=== PATIENT | female | born 1985 | race Caucasian/White ===

== ENCOUNTER 2017-01-29 09:30 | Inpatient (IN) | payer BC, MEDICAID ==
[2017-01-31] MEDS ORDERED: Water For Irrigation,Sterile 1,000 ML Container IRR PRN (08:09)
[2017-01-31] MEDS ORDERED: Misoprostol 200 MCG Tab PO PRN (08:09)
[2017-01-31] MEDS ORDERED: Carboprost Tromethamine 250 MCG/1 ML Amp IM PRN (08:09)
[2017-01-31] MEDS ORDERED: Lidocaine 1% 50 ML MDV INJECT PRN (08:09)
[2017-01-31] MEDS ORDERED: Sodium Chloride 0.9% 2.5 ML Syringe FLUSH PRN (08:09)
[2017-01-31] MEDS ORDERED: Sodium Chloride 0.9% 10 ML Syringe FLUSH PRN (08:09)
[2017-01-31] MEDS ORDERED: Methylergonovine 0.2 MG/1 ML Amp IM PRN (08:09)
[2017-01-31] MEDS ORDERED: Terbutaline 1 MG/ML SDV SUBCUT PRN (08:13)
[2017-01-31] MEDS ORDERED: Oxytocin/Lactated Ringers 30 UNIT/500 ML BAG IV SCH ×2 (08:15)
[2017-01-31] MEDS ORDERED: Misoprostol 25 MCG (1/4 of 100 MCG) Tab VAG SCH (08:15)
[2017-01-31] MEDS: Lactated Ringers 1,000 ML IV SCH ×3 (08:24→12:54)
--- NOTE | 2017-01-31 10:07 | PCM.LDHP ---
L&D History of Present Illness - General Date of Service: 01/31/17 Admit Problem/Dx: Patient Status Order with Admit Dx/Problem 01/29/17 09:34 Patient Status [ADT] Routine Patient Status: Outpatient Admission Diagnosis/Problem: - planned Reason for Admit: decreased movement Nurse Unit Type: Labor and Delivery Admitting Physician: Rafael Vargas Attending Physician: Rafael Vargas 01/31/17 08:02 Patient Status [ADT] Routine Patient Status: Outpatient Admission Diagnosis/Problem: - planned Reason for Admit: ? [facility] Nurse Unit Type: Labor and Delivery Admitting Physician: Rafael Vargas Attending Physician: Rafael Vargas 01/31/17 08:09 Patient Status [ADT] Routine Patient Status: Refer to Observation Admission Diagnosis/Problem: - planned Reason for Admit: labor Nurse Unit Type: Labor and Delivery Admitting Physician: Rafael Vargas Attending Physician: Rafael Vargas Admission Diagnosis/Problem Admission Diagnosis/Problem - planned Source of Information: Patient History Limitations: Reports: No limitations - History of Present Illness Improves with: Reports: None Worsens with: Reports: None Associated Symptoms: Reports: N - Related Data Allergies/Adverse Reactions: Allergies Allergy/AdvReac Type Severity Reaction Status Date / Time Penicillins Allergy Hives Verified 10/02/16 20:47 Past Medical History - Past Health History Medical/Surgical History: Denies Medical/Surgical History Social & Family History - Family History Family Medical History: Noncontributory - Tobacco Use Smoking Status *Q: Never Smoker Second Hand Smoke Exposure: No - Caffeine Use Caffeine Use: Reports: None - Recreational Drug Use Recreational Drug Use: No H&P Review of Systems - Review of Systems: Review Of Systems: See Below General: Reports: no symptoms HEENT: Reports: no symptoms Pulmonary: Reports: no symptoms Cardiovascular: Reports: no symptoms Gastrointestinal: Reports: No symptoms Genitourinary: Reports: no symptoms Musculoskeletal: Reports: no symptoms Skin: Reports: no symptoms Psychiatric: Reports: no symptoms Neurological: Reports: no symptoms Hematologic/Lymphatic: Reports: no symptoms Immunologic: Reports: no symptoms L&D Exam - Exam Exam: See Below - Vital Signs Weight: 95.254 kg - OB Specific Fundal Height in cm: 40 Contraction Intensity: Mild to Moderate movement: active heart tones: present Presentation: Vertex - Patient Data Lab Results last 24 hrs: Laboratory Results - last 24 hr 01/31/17 01/31/17 01/31/17 Range/Units 07:55 08:29 08:29 WBC 13.66 H (4.0-11.0) K/uL RBC 4.77 (4.30-5.90) M/uL Hgb 12.7 (12.0-16.0) g/dL Hct 40.0 (36.0-46.0) % MCV 83.9 (80.0-98.0) fL MCH 26.6 L (27.0-32.0) pg MCHC 31.8 (31.0-37.0) g/dL RDW Std Deviation 43.4 (28.0-62.0) fl RDW Coeff of Sparkle 14 (11.0-15.0) % Plt Count 179 (150-400) K/uL MPV 11.50 (7.40-12.00) fL Nucleated RBC % 0.0 /100WBC Nucleated RBCs # 0 K/uL Membrane Rupture POSITIVE Blood Type A POSITIVE Antibody Screen NEGATIVE Result Diagrams: 01/31/17 08:29 Problem List Initiated/Reviewed/Updated: Yes Orders Last 24hrs: Active Orders 24 hr Category Date Time Status Patient Status [ADT] Routine ADT 01/31/17 08:02 Active Patient Status [ADT] Routine ADT 01/31/17 08:09 Active Communication Order [RC] ASDIRECTED Care 01/31/17 08:13 Active Heart Tones [RC] CONTINUOUS Care 01/31/17 08:09 Active Non Stress Test [RC] PER UNIT ROUTINE Care 01/31/17 08:02 Active Non Stress Test [RC] PER UNIT ROUTINE Care 01/31/17 08:09 Active May Shower [RC] ASDIRECTED Care 01/31/17 08:09 Active Notify Provider [RC] PRN Care 01/31/17 08:09 Active Notify Provider [RC] PRN Care 01/31/17 08:13 Active Notify Provider [RC] STAT Care 01/31/17 08:13 Active Oxygen Therapy [RC] ASDIRECTED Care 01/31/17 08:13 Active Up ad Marguerite [RC] ASDIRECTED Care 01/31/17 08:02 Active Up ad Marguerite [RC] ASDIRECTED Care 01/31/17 08:09 Active Vaginal Exam [RC] Click To Edit Care 01/31/17 08:02 Active Vaginal Exam [RC] PRN Care 01/31/17 08:09 Active Vaginal Exam [RC] PRN Care 01/31/17 08:13 Active Vital Signs [RC] PER UNIT ROUTINE Care 01/31/17 08:02 Active Vital Signs [RC] PER UNIT ROUTINE Care 01/31/17 08:09 Active Clear Liquid Diet [DIET] Diet 01/31/17 Lunch Active Carboprost Tromethamine [Hemabate DS] Med 01/31/17 08:09 Active 250 mcg IM ASDIRECTED PRN Lactated Ringers [Ringers, Lactated] 1,000 ml Med 01/31/17 08:15 Active IV ASDIRECTED Lidocaine 1% [Xylocaine 1%] Med 01/31/17 08:09 Active 50 ml INJECT .ONCE PRN Methylergonovine [Methergine] Med 01/31/17 08:09 Active 0.2 mg IM ASDIRECTED PRN Misoprostol [Cytotec] Med 01/31/17 08:09 Active 200 mcg PO .ONCE PRN Misoprostol [Cytotec] Med 01/31/17 08:15 Active 25 mcg VAG .ONCE Oxytocin/Lactated Ringers [Pitocin in LR 30 Units/500 Med 01/31/17 08:15 Active ML] 30 unit in 500 ml IV TITRATE Sodium Chloride 0.9% [Saline Flush] Med 01/31/17 08:09 Active 10 ml FLUSH ASDIRECTED PRN Sodium Chloride 0.9% [Saline Flush] Med 01/31/17 08:09 Active 2.5 ml FLUSH ASDIRECTED PRN Terbutaline [Brethine] Med 01/31/17 08:13 Active 0.25 mg SUBCUT ASDIRECTED PRN Vancomycin [Vancocin] 1 gm Med 01/31/17 08:15 Active Sodium Chloride 0.9% [Normal Saline] 250 ml IV Q12H Water For Irrigation,Sterile [Sterile Water for Med 01/31/17 08:09 Active Irrigation] 1,000 ml IRR ASDIRECTED PRN Scalp Electrode [WOMSER] Per Unit Routine Oth 01/31/17 08:09 Ordered Peripheral IV Insertion Adult [OM.PC] Routine Oth 01/31/17 08:09 Ordered Medication Orders Carboprost Tromethamine (Hemabate Ds) 250 mcg IM ASDIRECTED PRN PRN Reason: Post Hemorrhage Lactated Ringer's (Ringers, Lactated) 1,000 mls @ 150 mls/hr IV ASDIRECTED MARLON Last Admin: 01/31/17 08:24 Dose: 150 mls/hr Vancomycin HCl 1 gm/ Sodium (Chloride) 250 mls @ 166 mls/hr IV Q12H MARLON Last Admin: 01/31/17 08:47 Dose: 166 mls/hr Oxytocin/Lactated Ringer's (Pitocin In Lr 30 Units/500 Ml) 30 unit in 500 mls @ 2 mls/hr IV TITRATE MARLON; 2 MUNITS/MIN PRN Reason: Protocol Last Admin: 01/31/17 09:25 Dose: 2 munits/min, 2 mls/hr Lidocaine HCl (Xylocaine 1%) 50 ml INJECT .ONCE PRN PRN Reason: Laceration repair Methylergonovine Maleate (Methergine) 0.2 mg IM ASDIRECTED PRN PRN Reason: Post Hemorrhage Misoprostol (Cytotec) 200 mcg PO .ONCE PRN PRN Reason: Post Hemorrhage Misoprostol (Cytotec) 25 mcg VAG .ONCE MAR[place]ON Sodium Chloride (Saline Flush) 10 ml FLUSH ASDIRECTED PRN PRN Reason: Keep Vein Open Sodium Chloride (Saline Flush) 2.5 ml FLUSH ASDIRECTED PRN PRN Reason: Keep Vein Open Sterile Water (Sterile Water For Irrigation) 1,000 ml IRR ASDIRECTED PRN PRN Reason: delivery Terbutaline Sulfate (Brethine) 0.25 mg SUBCUT ASDIRECTED PRN PRN Reason: Tacysystole
--- NOTE | 2017-01-31 11:22 | PCM.PREANE ---
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 Respiratory: Reports: no symptoms Cardiovascular: Reports: no symptoms GI: Reports: no symptoms Other: Reports: none - PHYSICAL ASSESSMENT Height: 5 ft 3 in Weight: 95.254 kg ASA Class: 2 Mental Status: alert & oriented x3 Airway Class: Mallampati = 2 Dentition: Reports: normal dentition Thyro-Mental Finger Breadths: 3 Mouth Opening Finger Breadths: 3 ROM/Head Extension: full Respiratory Status: lungs clear to auscultation bilaterally Cardiovascular Status: regular rate & rhythm, normal S1, S2, no murmur, blood pressure WNL - LAB Values: Laboratory Last Values WBC 13.66 K/uL (4.0-11.0) H 01/31/17 08:29 RBC 4.77 M/uL (4.30-5.90) 01/31/17 08:29 Hgb 12.7 g/dL (12.0-16.0) 01/31/17 08:29 Hct 40.0 % (36.0-46.0) 01/31/17 08:29 MCV 83.9 fL (80.0-98.0) 01/31/17 08:29 MCH 26.6 pg (27.0-32.0) L 01/31/17 08:29 MCHC 31.8 g/dL (31.0-37.0) 01/31/17 08:29 RDW Std Deviation 43.4 fl (28.0-62.0) 01/31/17 08:29 RDW Coeff of Sparkle 14 % (11.0-15.0) 01/31/17 08:29 Plt Count 179 K/uL (150-400) 01/31/17 08:29 MPV 11.50 fL (7.40-12.00) 01/31/17 08:29 Nucleated RBC % 0.0 /100WBC 01/31/17 08:29 Nucleated RBCs # 0 K/uL 01/31/17 08:29 Membrane Rupture POSITIVE 01/31/17 07:55 Blood Type A POSITIVE 01/31/17 08:29 Antibody Screen NEGATIVE 01/31/17 08:29 - ALLERGIES Allergies/Adverse Reactions: Allergies Allergy/AdvReac Type Severity Reaction Status Date / Time Penicillins Allergy Hives Verified 10/02/16 20:47 - ANESTHESIA PLAN Anesthesia Type Planned: epidural - ACKNOWLEDGEMENTS Pt an appropriate candidate for the planned anesthesia: Yes Alternatives and risks of anesthesia discussed w pt/guardian: Yes Pt/Guardian understands and agree with anesthesia plan: Yes PreAnesthesia Questionnaire - Past Health History Medical/Surgical History: Denies Medical/Surgical History HEENT History: Reports: None Cardiovascular History: Reports: None Respiratory History: Reports: None Gastrointestinal History: Reports: GERD Genitourinary History: Reports: None RADIO TESTER History: Reports: : 4 Para: 3 LMP (Approximate): Musculoskeletal History: Reports: None Neurological History: Reports: None Psychiatric History: Reports: None Endocrine/Metabolic History: Reports: Obesity/BMI 30+ Hematologic History: Reports: None Immunologic History: Reports: None Oncologic (Cancer) History: Reports: None Dermatologic History: Reports: None - Infectious Disease History Infectious Disease History: Reports: None - Past Surgical History HEENT Surgical History: Reports: Tonsillectomy - SUBSTANCE USE Smoking Status *Q: Never Smoker Second Hand Smoke Exposure: No Recreational Drug Use History: No - CURRENT (IN HOUSE) MEDS Current Meds: Current Medications Carboprost Tromethamine (Hemabate Ds) 250 mcg IM ASDIRECTED PRN PRN Reason: Post Hemorrhage Lactated Ringer's (Ringers, Lactated) 1,000 mls @ 150 mls/hr IV ASDIRECTED MARLON Last Admin: 01/31/17 08:24 Dose: 150 mls/hr Oxytocin/Lactated Ringer's (Pitocin In Lr 30 Units/500 Ml) 30 unit in 500 mls @ 2 mls/hr IV TITRATE MARLON; 2 MUNITS/MIN PRN Reason: Protocol Last Titration: 01/31/17 10:06 Dose: 4 munits/min, 4 mls/hr Vancomycin HCl 1,500 mg/ (Sodium Chloride) 500 mls @ 331.981 mls/hr IV Q12H MARLON Vancomycin HCl 500 mg/ Sodium (Chloride) 100 mls @ 100 mls/hr IV ONETIME ONE Stop: 01/31/17 11:59 Lidocaine HCl (Xylocaine 1%) 50 ml INJECT .ONCE PRN PRN Reason: Laceration repair Methylergonovine Maleate (Methergine) 0.2 mg IM ASDIRECTED PRN PRN Reason: Post Hemorrhage Misoprostol (Cytotec) 200 mcg PO .ONCE PRN PRN Reason: Post Hemorrhage Misoprostol (Cytotec) 25 mcg VAG .ONCE MARLON Sodium Chloride (Saline Flush) 10 ml FLUSH ASDIRECTED PRN PRN Reason: Keep Vein Open Sodium Chloride (Saline Flush) 2.5 ml FLUSH ASDIRECTED PRN PRN Reason: Keep Vein Open Sterile Water (Sterile Water For Irrigation) 1,000 ml IRR ASDIRECTED PRN PRN Reason: delivery Terbutaline Sulfate (Brethine) 0.25 mg SUBCUT ASDIRECTED PRN PRN Reason: Tacysystole Discontinued Medications Oxytocin/Lactated Ringer's (Pitocin In Lr 30 Units/500 Ml) 30 unit in 500 mls @ 999 mls/hr IV TITRATE MARLON PRN Reason: 999 MUNITS/MIN Stop: 01/31/17 08:46 Vancomycin HCl 1 gm/ Sodium (Chloride) 250 mls @ 166 mls/hr IV Q12H [facility] Last Admin: 01/31/17 08:47 Dose: 166 mls/hr
[2017-01-31] MEDS ORDERED: Ropivacaine HCl/PF 100 ML ONE (11:24)
[2017-01-31] MEDS ORDERED: fentaNYL 100 MCG/2 ML SDV ONE (11:24)
[2017-01-31] MEDS ORDERED: Acetaminophen 500 MG Tab PO PRN (17:48)
[2017-01-31] MEDS ORDERED: Benzocaine/Menthol 20%-0.5% Spray 78 GM Cannister TOP PRN (17:48)
[2017-01-31] MEDS ORDERED: Bisacodyl 10 MG Supp RECTAL PRN (17:48)
[2017-01-31] MEDS ORDERED: Witch Hazel Medicated Pads 40/Jar TOP PRN (17:48)
[2017-01-31] MEDS ORDERED: Ibuprofen 400 MG Tab PO PRN (17:48)
[2017-01-31] MEDS ORDERED: Lanolin 100% Cream 7 GM Tube TOP PRN (17:48)
[2017-01-31] MEDS ORDERED: Docusate Sodium 100 MG Cap PO PRN (17:48)
[2017-01-31] MEDS ORDERED: oxyCODONE 5 MG Tab PO PRN (17:48)
[2017-01-31] MEDS: Ibuprofen 800 MG Tab PO PRN (18:10)
--- NOTE | 2017-01-31 21:55 | OR ---
SURGEON: Rafael Vargas MD DATE OF PROCEDURE: HISTORY: Ms. Holt is 31-year-old patient. She is para 2-0-0-2. She is 40+ 3. She is followed in our clinic primarily by Juana Sheridan, our nurse structural drafter. She is admitted early this morning in early labors with spontaneous rupture of the membrane that was confirmed by positive AmniSure. At the time of admission, she was 3, 90 vertex, and -2. The patient had mild contraction and she was started on low-dose Pitocin which she responded to it very well. The patient had epidural anesthesia for labor analgesia and she progressed, she became complete complete, around 4:15 p.m. and she was able to accomplish normal spontaneous vaginal delivery of a male fetus. score reported to be 7 and 9 and the weight is not available at this time. The placenta delivered spontaneous, complete, and intact. There was a small 1st degree laceration and repaired with 3-0 Vicryl and without any problem. heart rate was category 1 through the entire process of labor. The estimated blood loss is 350 mL. No complication. DAVID / TRINO /[id number]
[2017-01-31] MEDS: Acetaminophen 500 MG Tab PO PRN (22:27)
[2017-02-01] MEDS: Ibuprofen 800 MG Tab PO PRN ×4 (02:44→23:04)
--- NOTE | 2017-02-01 07:10 | PCM48HPAN ---
Post Anesthesia Note - EVALUATION WITHIN 48HRS OF ANESTHETIC Vital Signs in Normal Range: Yes Patient Participated in Evaluation: Yes Respiratory Function Stable: Yes Airway Patent: Yes Cardiovascular Function Stable: Yes Hydration Status Stable: Yes Pain Control Satisfactory: Yes Nausea and Vomiting Control Satisfactory: Yes Mental Status Recovered: Yes
--- NOTE | 2017-02-01 11:18 | PCM.PNPP ---
- General Info Date of Service: 02/01/17 Functional Status: Reports: pain controlled - Review of Systems General: Reports: no symptoms HEENT: Reports: no symptoms Pulmonary: Reports: no symptoms Cardiovascular: Reports: no symptoms Gastrointestinal: Reports: No symptoms Genitourinary: Reports: no symptoms Musculoskeletal: Reports: no symptoms Skin: Reports: no symptoms Neurological: Reports: no symptoms Psychiatric: Reports: no symptoms - General Info Date of Service: 02/01/17 - Patient Data Vital Signs - most recent: Last Vital Signs Temp 36.6 C 02/01/17 07:00 Pulse 80 02/01/17 07:00 Resp 14 02/01/17 07:00 BP 133/65 02/01/17 07:00 Pulse Ox 99 02/01/17 07:00 Weight - most recent: 106.594 kg Lab Results - last 24 hrs: Laboratory Results - last 24 hr 02/01/17 Range/Units 05:57 Hgb 11.3 L (12.0-16.0) g/dL Hct 34.9 L (36.0-46.0) % Med Orders - Current: Current Medications Acetaminophen (Tylenol Extra Strength) 500 mg PO Q4H PRN PRN Reason: Pain Acetaminophen (Tylenol Extra Strength) 1,000 mg PO Q4H PRN PRN Reason: Pain Last Admin: 01/31/17 22:27 Dose: 1,000 mg Benzocaine/Menthol (Dermoplast Pain Relief 20%-0.5% [place]) 78 gm TOP ASDIRECTED PRN PRN Reason: Perineal Comfort Measure Bisacodyl (Dulcolax) 10 mg RECTAL .ONCE PRN PRN Reason: Constipation Carboprost Tromethamine (Hemabate Ds) 250 mcg IM ASDIRECTED PRN PRN Reason: Post Hemorrhage Docusate Sodium (Colace) 100 mg PO BID PRN PRN Reason: Constipation Emollient Ointment (Lansinoh Hpa) 0 gm TOP ASDIRECTED PRN PRN Reason: Sore Nipples Lactated Ringer's (Ringers, Lactated) 1,000 mls @ 150 mls/hr IV ASDIRECTED MARLON Last Admin: 01/31/17 12:54 Dose: 150 mls/hr Oxytocin/Lactated Ringer's (Pitocin In Lr 30 Units/500 Ml) 30 unit in 500 mls @ 2 mls/hr IV TITRATE MARLON; 2 MUNITS/MIN PRN Reason: Protocol Last Titration: 01/31/17 10:06 Dose: 4 munits/min, 4 mls/hr Vancomycin HCl 1,500 mg/ (Sodium Chloride) 500 mls @ 331.981 mls/hr IV Q12H MARLON Last Admin: 02/01/17 09:17 Dose: Not Given Ibuprofen (Motrin) 400 mg PO Q4H PRN PRN Reason: Pain Ibuprofen (Motrin) 800 mg PO Q6H PRN PRN Reason: Pain Last Admin: 02/01/17 09:02 Dose: 800 mg Lidocaine HCl (Xylocaine 1%) 50 ml INJECT .ONCE PRN PRN Reason: Laceration repair Methylergonovine Maleate (Methergine) 0.2 mg IM ASDIRECTED PRN PRN Reason: Post Hemorrhage Misoprostol (Cytotec) 200 mcg PO .ONCE PRN PRN Reason: Post Hemorrhage Misoprostol (Cytotec) 25 mcg VAG .ONCE MARLON Oxycodone HCl (Oxycodone) 5 mg PO Q2H PRN PRN Reason: Pain Sodium Chloride (Saline Flush) 10 ml FLUSH ASDIRECTED PRN PRN Reason: Keep Vein Open Sodium Chloride (Saline Flush) 2.5 ml FLUSH ASDIRECTED PRN PRN Reason: Keep Vein Open Sterile Water (Sterile Water For Irrigation) 1,000 ml IRR ASDIRECTED PRN PRN Reason: delivery Terbutaline Sulfate (Brethine) 0.25 mg SUBCUT ASDIRECTED PRN PRN Reason: Tacysystole Witch Celestina (Tucks) 1 pad TOP ASDIRECTED PRN PRN Reason: comfort care Discontinued Medications Fentanyl (Sublimaze) Confirm Administered Dose 100 mcg .ROUTE .STK-MED ONE Stop: 01/31/17 11:25 Last Admin: 02/01/17 08:33 Dose: Not Given Oxytocin/Lactated Ringer's (Pitocin In Lr 30 Units/500 Ml) 30 unit in 500 mls @ 999 mls/hr IV TITRATE MARLON PRN Reason: 999 MUNITS/MIN Stop: 01/31/17 08:46 Last Admin: 02/01/17 08:32 Dose: Not Given Vancomycin HCl 1 gm/ Sodium (Chloride) 250 mls @ 166 mls/hr IV Q12H [facility] Last Admin: 01/31/17 08:47 Dose: 166 mls/hr Vancomycin HCl 500 mg/ Sodium (Chloride) 100 mls @ 100 mls/hr IV ONETIME ONE Stop: 01/31/17 11:59 Last Admin: 01/31/17 12:17 Dose: 100 mls/hr Ropivacaine (Naropin 0.2%) Confirm Administered Dose 100 mls @ as directed .ROUTE .STK-MED ONE Stop: 01/31/17 11:25 Last Admin: 02/01/17 08:33 Dose: Not Given - Interaction Infant Disposition, : to Nursery Infant Interaction: Holding Feeding: Attempted ; Nursed Fair/Poor Support Person: - Recovery Exam Fundal Tone: Firm Fundal Level: 2 Fingerbreadths Below Umbilicus Fundal Placement: Midline Lochia Amount: Scant, Small Lochia Color: Rubra/Red Perineum Description: Other (see below) Other Perinuem Description: 1st degree lac Episiotomy/Laceration: Approximated Bladder Status: Voiding Urinary Elimination: Voided - Exam General: alert, oriented HEENT: Pupils equal Neck: supple Lungs: Clear to auscultation, Normal respiratory effort Cardiovascular: regular rate, regular rhythm Abdomen: bowel sounds present, soft, no tenderness, no distension Extremities: no edema Skin: warm, dry, intact Wound/Incisions: healing well Neurological: no new focal deficit Psy/Mental Status: alert, normal affect, normal mood - Problem List Review Problem List Initiated/Reviewed/Updated: Yes - My Orders Last 24 Hours: My Active Orders 01/31/17 17:48 Patient Status [ADT] Routine May Shower [RC] ASDIRECTED Acetaminophen [Tylenol Extra Strength] 1,000 mg PO Q4H PRN Acetaminophen [Tylenol Extra Strength] 500 mg PO Q4H PRN Benzocaine/Menthol [Dermoplast Pain Relief 20%-0.5% [place]] 78 gm TOP ASDIRECTED PRN Bisacodyl [Dulcolax] 10 mg RECTAL .ONCE PRN Docusate Sodium [Colace] 100 mg PO BID PRN Ibuprofen [Motrin] 400 mg PO Q4H PRN Ibuprofen [Motrin] 800 mg PO Q6H PRN Lanolin [Lansinoh HPA] See Dose Instructions TOP ASDIRECTED PRN Witch Celestina [Tucks] 1 pad TOP ASDIRECTED PRN oxyCODONE 5 mg PO Q2H PRN Assess Lochia [WOMSER] Per Unit Routine Assess Uterine Involution [WOMSER] Per Unit Routine Peripheral IV Discontinue [OM.PC] Routine 01/31/17 20:00 Vancomycin 1,500 mg Sodium Chloride 0.9% [Normal Saline] 500 ml IV Q12H 02/01/17 Breakfast Regular Diet [DIET] - Assessment Assessment:: S/P doing well - Plan Plan:: Plan tosend home in am
[2017-02-01] MEDS: Acetaminophen 500 MG Tab PO PRN (19:21)
[2017-02-02 07:46] VITALS: BP 130/74
--- NOTE | 2017-02-02 10:54 | PCM.PNPP ---
- General Info Date of Service: 02/02/17 Functional Status: Reports: pain controlled - Review of Systems General: Reports: no symptoms HEENT: Reports: no symptoms Pulmonary: Reports: no symptoms Cardiovascular: Reports: no symptoms Gastrointestinal: Reports: No symptoms Genitourinary: Reports: no symptoms Musculoskeletal: Reports: no symptoms Skin: Reports: no symptoms Neurological: Reports: no symptoms Psychiatric: Reports: no symptoms - General Info Date of Service: 02/02/17 - Patient Data Vital Signs - most recent: Last Vital Signs Temp 36.5 C 02/02/17 07:43 Pulse 83 02/02/17 07:43 Resp 18 02/02/17 07:43 BP 130/74 02/02/17 07:43 Pulse Ox 99 02/02/17 07:43 Weight - most recent: 106.594 kg Med Orders - Current: Current Medications Acetaminophen (Tylenol Extra Strength) 500 mg PO Q4H PRN PRN Reason: Pain Acetaminophen (Tylenol Extra Strength) 1,000 mg PO Q4H PRN PRN Reason: Pain Last Admin: 02/01/17 19:21 Dose: 1,000 mg Benzocaine/Menthol (Dermoplast Pain Relief 20%-0.5% [place]) 78 gm TOP ASDIRECTED PRN PRN Reason: Perineal Comfort Measure Bisacodyl (Dulcolax) 10 mg RECTAL .ONCE PRN PRN Reason: Constipation Carboprost Tromethamine (Hemabate Ds) 250 mcg IM ASDIRECTED PRN PRN Reason: Post Hemorrhage Docusate Sodium (Colace) 100 mg PO BID PRN PRN Reason: Constipation Emollient Ointment (Lansinoh Hpa) 0 gm TOP ASDIRECTED PRN PRN Reason: Sore Nipples Lactated Ringer's (Ringers, Lactated) 1,000 mls @ 150 mls/hr IV ASDIRECTED MARLON Last Admin: 01/31/17 12:54 Dose: 150 mls/hr Oxytocin/Lactated Ringer's (Pitocin In Lr 30 Units/500 Ml) 30 unit in 500 mls @ 2 mls/hr IV TITRATE MARLON; 2 MUNITS/MIN PRN Reason: Protocol Last Titration: 01/31/17 10:06 Dose: 4 munits/min, 4 mls/hr Vancomycin HCl 1,500 mg/ (Sodium Chloride) 500 mls @ 331.981 mls/hr IV Q12H [facility] Last Admin: 02/02/17 08:13 Dose: Not Given Ibuprofen (Motrin) 400 mg PO Q4H PRN PRN Reason: Pain Ibuprofen (Motrin) 800 mg PO Q6H PRN PRN Reason: Pain Last Admin: 02/01/17 23:04 Dose: 800 mg Lidocaine HCl (Xylocaine 1%) 50 ml INJECT .ONCE PRN PRN Reason: Laceration repair Methylergonovine Maleate (Methergine) 0.2 mg IM ASDIRECTED PRN PRN Reason: Post Hemorrhage Misoprostol (Cytotec) 200 mcg PO .ONCE PRN PRN Reason: Post Hemorrhage Misoprostol (Cytotec) 25 mcg VAG .ONCE MAR[place]ON Oxycodone HCl (Oxycodone) 5 mg PO Q2H PRN PRN Reason: Pain Sodium Chloride (Saline Flush) 10 ml FLUSH ASDIRECTED PRN PRN Reason: Keep Vein Open Sodium Chloride (Saline Flush) 2.5 ml FLUSH ASDIRECTED PRN PRN Reason: Keep Vein Open Sterile Water (Sterile Water For Irrigation) 1,000 ml IRR ASDIRECTED PRN PRN Reason: delivery Terbutaline Sulfate (Brethine) 0.25 mg SUBCUT ASDIRECTED PRN PRN Reason: Tacysystole Witch Celestina (Brockckcele) 1 pad TOP ASDIRECTED PRN PRN Reason: comfort care Last Admin: 02/01/17 23:04 Dose: 1 pad Discontinued Medications Fentanyl (Sublimaze) Confirm Administered Dose 100 mcg .ROUTE .STK-MED ONE Stop: 01/31/17 11:25 Last Admin: 02/01/17 08:33 Dose: Not Given Oxytocin/Lactated Ringer's (Pitocin In Lr 30 Units/500 Ml) 30 unit in 500 mls @ 999 mls/hr IV TITRATE [facility] PRN Reason: 999 MUNITS/MIN Stop: 01/31/17 08:46 Last Admin: 02/01/17 08:32 Dose: Not Given Vancomycin HCl 1 gm/ Sodium (Chloride) 250 mls @ 166 mls/hr IV Q12H [facility] Last Admin: 01/31/17 08:47 Dose: 166 mls/hr Vancomycin HCl 500 mg/ Sodium (Chloride) 100 mls @ 100 mls/hr IV ONETIME ONE Stop: 01/31/17 11:59 Last Admin: 01/31/17 12:17 Dose: 100 mls/hr Ropivacaine (Naropin 0.2%) Confirm Administered Dose 100 mls @ as directed .ROUTE .STK-MED ONE Stop: 01/31/17 11:25 Last Admin: 02/01/17 08:33 Dose: Not Given - Infant Interaction Disposition, : [place] to Nursery Infant Interaction: Holding Infant Infant Feeding: Attempted ; Nursed Fair/Poor Support Person: - Recovery Exam Fundal Tone: Firm Fundal Level: 2 Fingerbreadths Below Umbilicus Fundal Placement: Midline Lochia Amount: Scant Lochia Color: Rubra/Red Perineum Description: Other (see below) Other Perinuem Description: 1st degree laceration Episiotomy/Laceration: Approximated Bladder Status: Voiding Urinary Elimination: Voided - Exam General: alert, oriented HEENT: Pupils equal Neck: supple Lungs: Clear to auscultation, Normal respiratory effort Cardiovascular: regular rate, regular rhythm Abdomen: bowel sounds present, soft, no tenderness, no distension Extremities: no edema Skin: warm, dry, intact Wound/Incisions: healing well Neurological: no new focal deficit Psy/Mental Status: alert, normal affect, normal mood - Problem List Review Problem List Initiated/Reviewed/Updated: Yes - Assessment Assessment:: S/P doing well - Plan Plan:: Plan tosend home in am
[2017-02-02] MEDS: Ibuprofen 800 MG Tab PO PRN (11:46)
== END 2017-02-02 13:00 | disposition home or self-care (01) | DRG 560 ==
LOC: MW.OBCHECK 09:30 → MW.OB 09:34 → MW.OBCHECK 10:57 → MW.OB 01-31 07:22 → OBSVTOIN 01-31 17:19 → MW.OB 02-01 02:18
PROVIDERS: ADMIT Obstetrics & Gynecology; ATTEND Obstetrics & Gynecology
PROC: 10E0XZZ Delivery of Products of Conception, External Approach (ICD-10-PCS; principal; 2017-01-31)
PROC: 3E0R3CZ (ICD-10-PCS; 2017-01-31)
PROC: 0HQ9XZZ Repair Perineum Skin, External Approach (ICD-10-PCS; 2017-01-31)
DX: O70.0 First degree perineal laceration during delivery (principal); O98.82 Other maternal infectious and parasitic diseases complicating childbirth; Z3A.38 38 weeks gestation of pregnancy; Z37.0 Single live birth; B95.1 Streptococcus, group B, as the cause of diseases classified elsewhere
CPT/HCPCS: 01967; 36415; 59025; 84112; 85014; 85018; 85027; 86850; 86900; 86901; A9270-GY; J2795; J3010; J3370; J7030; J7050; J7120

== ENCOUNTER → 2017-04-10 | Outpatient (CLI) | payer BC, MEDICAID ==
[2017-04-10 14:39] LABS: CHLORIDE,CL 108 mmol/L (98-110); SODIUM,NA 139 mmol/L (136-146)
== END ==
LOC: MW.CHRC 13:49
PROVIDERS: ATTEND Family Medicine
DX: L50.9 Urticaria, unspecified (principal); M62.89 Other specified disorders of muscle
CPT/HCPCS: 36415; 80053; 82306; 82550; 83516; 84439; 84443; 85025; 86003; 86038; 86140; 86256

== ENCOUNTER 2021-06-08 15:21 | Emergency (ER) | payer BC, MEDICAID ==
[2021-06-08] MEDS ORDERED: Sodium Chloride 0.9% 10 ML Syringe FLUSH PRN (15:34)
[2021-06-08] MEDS ORDERED: Sodium Chloride 0.9% 2.5 ML Syringe FLUSH PRN (15:34)
--- NOTE | 2021-06-08 15:39 | EDM.PDOC ---
ED HPI GENERAL MEDICAL PROBLEM - General Chief Complaint: General Stated Complaint: DIZZY/HEART RACING/SOB/ULRICH Time Seen by Provider: 06/08/21 15:27 - History of Present Illness INITIAL COMMENTS - FREE TEXT/NARRATIVE: History of present illness: [] The patient is a fluttering in her heart for 5 days. She sleeps well at night. 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 For fluttering is associated with nausea and diaphoresis. It comes on with exertion. It limits her ability to walk far. She has had occasional anxiety for which she takes hydroxyzine as needed. She sleeps well. Her stress is moderate but not much higher than usual. She does not have any pain. The patient is not a smoker. She is not diabetic or hypertensive. She has a maternal grandmother that had heart disease but otherwise no heart disease or stroke in the family. She has been bedridden has not had any blood clots is not on any hormones. The patient has no leg swelling has not had any recent cast or immobilization or long trip. As far as the patient knows there is no family history of DVT or pulmonary embolus. Review of systems: As per history of present illness and below otherwise all systems reviewed and negative. Past medical history: As per history of present illness and as reviewed below otherwise noncontributory. Surgical history: As per history of present illness and as reviewed below otherwise noncontributory. Social history: No reported history of drug or alcohol abuse. Family history: As per history of present illness and as reviewed below otherwise noncont ributory. Physical exam: Constitutional - well developed, well-nourished and in no acute distress HEENT - normocephalic, no evidence of trauma - external nose and mouth normal - no mass in neck and no JVD - mucosae moist EYES - full EOM, PERRL, no icterus - no evidence of inflammation, injection, or drainage Respiratory - no respiratory distress, equal bilateral expansion, lungs clear to auscultation and no abnormal lung sounds Cardiovascular - Regular Rhythm with S1 and S2 appreciated and no murmur, gallop or rub. GI - abdomen soft without distension or organomegaly - normal bowel sounds - no guard or rebound Musculoskeletal no gross deformity of long bones or joints - no tenderness, swelling or edema Neurologic - Alert and oriented times four - CN II-XII grossly intact - motor se nsory and coordination symmetrically normal Psychiatric - appropriate mood and affect with normal thought content Hematologic - No petechiae or purpura - mucosa appropriate color and sclera not pale - normal nail bed color and refill Integument - no rash or evidence of trauma - normal turgor Diagnostics: [] Therapeutics: [] Impression: [] Plan: [] Definitive disposition and diagnosis as appropriate pending reevaluation and review of above. - Related Data Allergies Allergy/AdvReac Type Severity Reaction Status Date / Time clindamycin Allergy Hives Verified 06/08/21 15:28 Penicillins Allergy Hives Verified 06/08/21 15:28 Home Meds: Home Meds . [No Known Home Meds] 06/08/21 [History] Past Medical History - Past Health History Medical/Surgical History: Denies Medical/Surgical History HEENT History: Reports: None Cardiovascular History: Reports: None Respiratory History: Reports: None Gastrointestinal History: Reports: GERD Genitourinary History: Reports: None [employer] WORK[employer] History: Reports: Musculoskeletal History: Reports: None Neurological History: Reports: None Psychiatric History: Reports: None Endocrine/Metabolic History: Reports: Obesity/BMI 30+ Hematologic History: Reports: None Immunologic History: Reports: None Oncologic (Cancer) History: Reports: None Dermatologic History: Reports: None - Infectious Disease History Infectious Disease History: Reports: None - Past Surgical History HEENT Surgical History: Reports: Tonsillectomy Endocrine Surgical History: Reports: None Social & Family History - Family History Family Medical History: No Pertinent Family History Cardiac: Reports: Hypertension, [place] Endocrine/Metabolic: Reports: Diabetes, Type I, Diabetes, type II Oncologic: Reports: Prostate - Tobacco Use Tobacco Use Status *Q: Never Tobacco User - Caffeine Use Caffeine Use: Reports: None - Recreational Drug Use Recreational Drug Use: No ED ROS GENERAL - Review of Systems Review Of Systems: Comprehensive ROS is negative, except as noted in HPI. ED EXAM, GENERAL - Physical Exam Exam: See Below Free Text/Narrative:: My physical exam is in the HPI #1 Interpretation EKG Interpretation Comments: EKG at 1528 hrs. sinus rhythm heart rate 75 [place] 146 QT duration 429 [place] I 100[address] Minimal [address] depression with borderline right axis deviation. Impression no acute injury Course - Vital Signs Last Recorded V/S: Last Vital Signs Temp 36.8 C 06/08/21 15:28 Pulse 78 06/08/21 15:28 Resp 16 06/08/21 15:28 BP 141/88 H 06/08/21 15:28 Pulse Ox 98 06/08/21 15:28 - Orders/Labs/Meds Orders: Active Orders 24 hr Category Date Time Status Cardiac Monitoring [RC] . DIRECTED Care 06/08/21 15:36 Active EKG Documentation Completion [RC] AM Care 06/08/21 15:34 Active Sodium Chloride 0.9% [Saline Flush] Med 06/08/21 15:34 Active 10 ml FLUSH ASDIRECTED PRN Sodium Chloride 0.9% [Saline Flush] Med 06/08/21 15:34 Active 2.5 ml FLUSH ASDIRECTED PRN Saline Lock Insert [OM.PC] Stat Oth 06/08/21 15:34 Ordered Medication Orders Sodium Chloride (Sodium Chloride 0.9% 10 Ml Syringe) 10 ml FLUSH ASDIRECTED PRN PRN Reason: Keep Vein Open Last Admin: 06/08/21 15:45 Dose: 10 ml Documented by: [id number] Sodium Chloride (Sodium Chloride 0.9% 2.5 Ml Syringe) 2.5 ml FLUSH ASDIRECTED PRN PRN Reason: Keep Vein Open Last Admin: 06/08/21 15:45 Dose: 2.5 ml Documented by: [id number] Labs: Laboratory Tests 06/08/21 06/08/21 06/08/21 Range/Units 15:50 15:50 15:50 WBC 10.38 (4.0-11.0) K/uL RBC 4.62 (4.30-5.90) M/uL Hgb 13.6 (12.0-16.0) g/dL Hct 40.4 (36.0-46.0) % MCV 87.4 (80.0-98.0) fL MCH 29.4 (27.0-32.0) pg MCHC 33.7 (31.0-37.0) g/dL RDW Std Deviation 40.8 (28.0-62.0) fl RDW Coeff of Sparkle 13 (11.0-15.0) % Plt Count 269 (150-400) K/uL MPV 11.70 (7.40-12.00) fL Neut % (Auto) 69.8 (48.0-80.0) % Lymph % (Auto) 24.8 (16.0-40.0) % [place] % (Auto) 3.6 (0.0-15.0) % Eos % (Auto) 1.5 (0.0-7.0) % Baso % (Auto) 0.3 (0.0-1.5) % Neut # (Auto) 7.3 H (1.4-5.7) K/uL Lymph # (Auto) 2.6 H (0.6-2.4) K/uL [place] # (Auto) 0.4 (0.0-0.8) K/uL Eos # (Auto) 0.2 (0.0-0.7) K/uL Baso # (Auto) 0.0 (0.0-0.1) K/uL Nucleated RBC % 0.0 /100WBC Nucleated RBCs # 0 K/uL Sodium 138 (136-145) mmol/L Potassium 3.8 (3.5-5.1) mmol/L Chloride 104 (98-107) mmol/L Carbon Dioxide 25.9 (21.0-32.0) mmol/L BUN 9 (7.0-18.0) mg/dL Creatinine 0.7 (0.6-1.0) mg/dL Est Cr Clr Drug Dosing 88.72 mL/min Estimated GFR (MDRD) > 60.0 ml/min Glucose 94 (74-106) mg/dL Calcium 8.7 (8.5-10.1) mg/dL Magnesium 2.1 (1.8-2.4) mg/dL Total Bilirubin 0.4 (0.2-1.0) mg/dL AST 14 L (15-37) IU/L ALT 23 (14-63) IU/L Alkaline Phosphatase 61 (46-116) U/L Troponin I < 0.050 (0.000-0.056) ng/mL Total Protein 7.5 (6.4-8.2) g/dL Albumin 4.0 (3.4-5.0) g/dL Globulin 3.5 (2.6-4.0) g/dL Albumin/Globulin Ratio 1.1 (0.9-1.6) TSH 3rd Generation 1.27 (0.36-3.74) uIU/mL HCG, Qual NEGATIVE (NEG) Meds: Medications Generic Name Dose Route Start Last Admin Trade Name Freq PRN Reason Stop Dose Admin Sodium Chloride 10 ml 06/08/21 15:34 06/08/21 15:45 Sodium Chloride 0.9% 10 Ml Syringe FLUSH 10 ml ASDIRECTED PRN Administration Keep Vein Open Sodium Chloride 2.5 ml 06/08/21 15:34 06/08/21 15:45 Sodium Chloride 0.9% 2.5 Ml Syringe FLUSH 2.5 ml ASDIRECTED PRN Administration Keep Vein Open Departure - Departure Time of Disposition: 17:03 Disposition: Home, Self-Care 01 Condition: Good Clinical Impression: Palpitations - Discharge Information Instructions: Palpitations, Sisv-nh-Cuti Forms: ED Department Discharge Additional Instructions: [facility] - cardiology [address] [place] [id number] The following information is given to patients seen in the emergency department who are being discharged to home. This information is to outline your options for follow-up care. We provide all patients seen in our emergency department with a follow-up referral. The need for follow-up, as well as the timing and circumstances, are variable depending upon the specifics of your emergency department visit. If you don't have a primary care physician on staff, we will provide you with a referral. We always advise you to contact your personal physician following an emergency department visit to inform them of the circumstance of the visit and for follow-up with them and/or the need for any referrals to a consulting specialist. The emergency department will also refer you to a specialist when appropriate. This referral assures that you have the opportunity for follow-up care with a specialist. All of these measure are taken in an effort to provide you with optimal care, which includes your follow-up. Under all circumstances we always encourage you to contact your private physician who remains a resource for coordinating your care. When calling for follow-up care, please make the office aware that this follow-up is from your recent emergency room visit. If for any reason you are refused follow-up, please contact the [facility] Emergency Department at and asked to speak to the emergency department charge nurse. Call your doctor between now and the time you return your Zio patch and have them arrange for follow-up. Sepsis Event Note (ED) - Evaluation Sepsis Screening Result: No Definite Risk - Focused Exam Vital Signs: Vital Signs Temp Pulse Resp BP Pulse Ox 06/08/21 15:28 36.8 C 78 16 141/88 H 98 - My Orders Last 24 Hours: My Active Orders 06/08/21 15:34 EKG Documentation Completion [RC] AM Sodium Chloride 0.9% [Saline Flush] 10 ml FLUSH ASDIRECTED PRN Sodium Chloride 0.9% [Saline Flush] 2.5 ml FLUSH ASDIRECTED PRN Saline Lock Insert [OM.PC] Stat 06/08/21 15:36 Cardiac Monitoring [RC] . DIRECTED - Assessment/Plan Last 24 Hours: My Active Orders 06/08/21 15:34 EKG Documentation Completion [RC] AM Sodium Chloride 0.9% [Saline Flush] 10 ml FLUSH ASDIRECTED PRN Sodium Chloride 0.9% [Saline Flush] 2.5 ml FLUSH ASDIRECTED PRN Saline Lock Insert [OM.PC] Stat 06/08/21 15:36 Cardiac Monitoring [RC] . DIRECTED
[2021-06-08 15:42] VITALS: PULSE 78
--- NOTE | 2021-06-08 16:40 | CR ---
For Patients: As a result of the Century Cures Act, medical imaging exams and procedure reports are released immediately into your electronic medical record. You may view this report before your referring provider. If you have questions, please contact your health care provider. INDICATION: Palpitations TECHNIQUE: Chest 1 view. COMPARISON: None. FINDINGS: Cardiovascular and mediastinum: Heart size and vasculature are normal in caliber and appearance. Mediastinum is within normal limits. Lungs and pleural space: Lungs are clear. No sign of infiltrate or mass. No sign of pleural effusion. No pneumothorax. Bones and soft tissues: No significant findings. IMPRESSION: Unremarkable chest. Dictated by: Stewart Babb MD @ 06/08/2021 16:39:39 (Electronically Signed)
[2021-06-08 16:53] LABS: BLOOD UREA NITROGEN,BUN 9 mg/dL (7.0-18.0); CARBON DIOXIDE,CO2 25.9 mmol/L (21.0-32.0); CHLORIDE,CL 104 mmol/L (98-107); GLUCOSE RANDOM 94 mg/dL (74-106); POTASSIUM,K 3.8 mmol/L (3.5-5.1); SODIUM,NA 138 mmol/L (136-145)
[2021-06-08 17:19] VITALS: BP 131/76
== END 2021-06-08 17:19 | disposition home or self-care (01) ==
LOC: MW.ED 15:21
DX: R00.2 Palpitations (principal); E66.9 Obesity, unspecified; Z88.0 Allergy status to penicillin; Z88.1 Allergy status to other antibiotic agents; Z68.34 Body mass index [BMI] 34.0-34.9, adult
CPT/HCPCS: 71045; 71045-26; 80053; 83735; 84443; 84484; 84703; 85025; 93005; 93010; 99284; 99285-25